=== PATIENT | female | born 1990 | race African-American/Black ===

== ENCOUNTER 2021-01-15 10:09 | Emergency (ER) | payer OTHER, SELFPAY ==
--- NOTE | ~2021-01-15 | XR_ITS ---
EXAMINATION: XR chest 2V 01/15/2021 11:48 INDICATION: Cough for 2 weeks PROCEDURE: 2 view chest COMPARISON: No prior studies for comparison. FINDINGS: The lungs are clear. The cardiomediastinal silhouette is within normal limits. There are no pleural effusions. There is no pneumothorax suspected. IMPRESSION: 1: NO ACUTE CARDIOPULMONARY DISEASE. Reviewed, dictated and finalized at location A. HEL KEEPER
--- NOTE | 2021-01-15 10:44 | ED.GENADULT ---
HPI - General Adult General Chief complaint: Upper Respiratory Infection Stated complaint: cough Time Seen by Provider: 01/15/21 10:42 History of Present Illness HPI narrative: Patient is a 30-year-old female who comes to the ED today complaining of a cough for the last 2 weeks. Says it is only present intermittently but when it is present it is severe. She otherwise denies any other symptoms including sore throat, fevers, sinus congestion. Has not tried any [id number] medicines. She tested negative for COVID-19. She has no other medical conditions. No possibility of . Related Data Allergies Allergy/AdvReac Type Severity Reaction Status Date / Time metoclopramide Allergy Unknown Dizziness Verified 01/15/21 12:07 ondansetron [From Zofran] Allergy Hallucinati Verified 01/15/21 12:07 ng Review of Systems Constitutional: Constitutional: Reports as per HPI, Denies fever(s), Denies night sweats and Denies weakness Cardiovascular: Cardiovascular: Denies chest pain, Denies edema, Denies leg edema, Denies dyspnea and Denies orthopnea Respiratory: Respiratory: Reports as per HPI, Reports cough and Denies dyspnea Gastrointestinal: Gastrointestinal: Denies abdominal pain, Denies constipation, Denies diarrhea, Denies nausea and Denies vomiting Musculoskeletal: Musculoskeletal: Denies abnormal gait, Denies back pain, Denies numbness and Denies tingling Neurologic: Denies Abnormal speech present, Denies abnormal gait, Denies numbness, Denies tingling and Denies weakness Psychiatric: Psychiatric: Denies homicidal ideation and Denies suicidal ideation [facility] Social History Social History Smoking status: Never smoker Alcohol intake: never Substance use: never Gender identity (if verbalized by the patient): Female Exam Narrative: Pleasant, well-appearing, no acute distress Const: General: cooperative, healthy appearing, comfortable, no acute distress, well developed, alert, awake and Physically active Orientation/consciousness: patient oriented x3 HENMT: Head: normal to inspection, normocephalic and atraumatic Ears: external ears normal General nose exam: Normal external nose present Eyes: Pupils: Equal, round and reactive pupils present EOM: EOMs intact bilaterally Neck: Neck: normal visual inspection Chest: Chest palpation & inspection: normal inspection of the chest and no tenderness Resp: Effort & Inspection: normal respiratory effort and able to speak in complete sentences Auscultation: clear to auscultation bilaterally Other: Lungs are clear to auscultation. Cardio: Rate: regular rate Rhythm: regular rhythm GI: Inspection: normal to inspection GI Palp: No abdominal tenderness : General: Yes no CVA tenderness Back/Spine/Pelvis: Back: no CVA tenderness Skin: General skin exam: normal color and no rashes or lesions noted Lesions: no lesions Neuro: General: patient oriented x3, no focal motor deficits and CN's II-XI intact bilaterally Cranial nerves: Yes Equal, round and reactive pupils present Speech: No Abnormal speech present Extrem: General: normal to inspection and full ROM Psych: Appearance: grossly normal and well kempt Mental Status: mental status grossly normal Speech and movement: Normal speech and movement present Affect: normal affect Thought process: Normal thought process present Course Vital Signs Vital signs: Vital Signs Temperature 36.6 C 01/15/21 12:00 Pulse Rate 62 01/15/21 12:00 Respiratory Rate 18 01/15/21 12:00 Blood Pressure 120/71 01/15/21 12:00 Pulse Oximetry 100 01/15/21 12:00 Temperature 36.6 C 01/15/21 12:00 Pulse Rate 62 01/15/21 12:00 Respiratory Rate 18 01/15/21 12:00 Blood Pressure 120/71 01/15/21 12:00 Pulse Oximetry 100 01/15/21 12:00 Medical Decision Making Vital Signs Vital Signs: Vital Signs Temperature 36.6 C 01/15/21 12:00 Pulse
[2021-01-15 12:00] VITALS: BP 120/71; PULSE 62; RESP 18; TEMP 36.6; O2SAT 100
[2021-01-15 12:32] VITALS: BP 114/74; PULSE 70; RESP 16; TEMP 36.9; O2SAT 100
== END 2021-01-15 12:34 | disposition home or self-care (01) ==
PROVIDERS: Emergency Provider Emergency Medicine
DX: J40 Bronchitis, not specified as acute or chronic (principal)
CPT/HCPCS: 71046; 99283

== ENCOUNTER 2021-08-15 17:15 | Emergency (ER) | payer OTHER, SELFPAY ==
--- NOTE | ~2021-08-15 | XR_ITS ---
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 COMPARISON: None available. FINDINGS: Normal mineralization. No fracture or dislocation. No lytic or blastic lesion. Joint space s are maintained. No erosion or periosteal change. Soft tissues within normal limits. IMPRESSION: No acute osseous finding in the right shoulder. Reviewed, dictated and finalized at location K.
[2021-08-15 17:17] VITALS: BP 140/81; PULSE 69; RESP 18; TEMP 36.6; O2SAT 100
--- NOTE | 2021-08-15 17:57 | ED.GENADULT ---
HPI - General Adult General Chief complaint: Extremity Injury, Upper Stated complaint: R SHOULDER PAIN S/P INJURY Time Seen by Provider: 08/15/21 17:21 Source: RN notes reviewed History of Present Illness HPI narrative: Patient presents emergency department from home for right shoulder pain. 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 now has pain in her right superior shoulder pain is worse with movement of the right arm she denies any direct trauma to the arm or falling of the arm she denies any pain of the right elbow or wrist denies chest pain or shortness of breath states she did take Aleve at home for the pain denies any numbness or tingling of the extremity Related Data Allergies Allergy/AdvReac Type Severity Reaction Status Date / Time metoclopramide Allergy Unknown Dizziness Verified 08/15/21 17:20 ondansetron [From Zofran] Allergy Hallucinati Verified 08/15/21 17:20 ng Review of Systems Review of Systems: Gen.: Denies fevers or chills Musculoskeletal: See HPI Neuro: Denies numbness, tingling, weakness Skin: Denies rash Endo: Denies DM [facility] Past Medical History Medical History (Updated 08/15/21 @ 18:00 by Frederic Abbott DO) Patient denies significant medical history Social History Social History Smoking status: Never smoker Alcohol intake: never Substance use: never Gender identity (if verbalized by the patient): Female Exam Narrative: APPEARANCE: No acute distress, nontoxic, resting in bed Eyes: EOMI HEENT: Normocephalic, atraumatic, RESPIRATORY: No respiratory distress MUSCULOSKELETAl: Tender palpation in the right superior shoulder no tenderness over the lateral or anterior shoulder no tenderness of the right elbow or wrist radial pulse 2+ neurovascular intact pain with flexion abduction greater than 90 degrees NEURO: Awake and alert. Following commands, speech normal, no focal deficits SKIN:: Warm, dry. Normal Color no rash or lesions Course Course Emergency Course: Discussed with patient results of workup and diagnosis. Discussed need for follow-up with primary care, proper use of medication, and reasons to return to the emergency department. Patient understands and agrees to current treatment plan Vital Signs Vital signs: Vital Signs Temperature 97.9 F 08/15/21 17:17 Pulse Rate 69 08/15/21 17:17 Respiratory Rate 18 08/15/21 17:17 Blood Pressure 140/81 08/15/21 17:17 Pulse Oximetry 100 08/15/21 17:17 Oxygen Delivery Room Air 08/15/21 17:17 Temperature 97.9 F 08/15/21 17:17 Pulse Rate 69 08/15/21 17:17 Respiratory Rate 18 08/15/21 17:17 Blood Pressure 140/81 08/15/21 17:17 Pulse Oximetry 100 08/15/21 17:17 Oxygen Delivery Room Air 08/15/21 17:17 Medical Decision Making Vital Signs Vital Signs: Vital Signs Temperature 97.9 F 08/15/21 17:17 Pulse Rate 69 08/15/21 17:17 Respiratory Rate 18 08/15/21 17:17 Blood Pressure 140/81 08/15/21 17:17 Pulse Oximetry 100 08/15/21 17:17 Oxygen Delivery Room Air 08/15/21 17:17 Temperature 97.9 F 08/15/21 17:17 Pulse Rate 69 08/15/21 17:17 Respiratory Rate 18 08/15/21 17:17 Blood Pressure 140/81 08/15/21 17:17 Pulse Oximetry 100 08/15/21 17:17 Oxygen Delivery Room Air 08/15/21 17:17 Imaging Data Radiologist's impression: ITS Impressions Shoulder X-Ray 08/15/21 18:22 IMPRESSION: No acute osseous finding in the right shoulder. Discharge Plan Discharge Clinical Impression: Sprain of right shoulder Patient Disposition: Home, Self-Care Condition: Stable Instructions: Antibiotic Form, Shoulder Sprain (ED) Additional Instructions: Return for increasing pain, numbness or tingling in the extremities or any other symptoms of concern Prescriptions: New ibuprofen [IBU] 600 mg tabl
== END 2021-08-15 18:42 | disposition home or self-care (01) ==
PROVIDERS: Emergency Provider Emergency Medicine
DX: S43.401A Unspecified sprain of right shoulder joint, initial encounter (principal); X50.0XXA Overexertion from strenuous movement or load, initial encounter; Y93.F2 Activity, caregiving, lifting
CPT/HCPCS: 73030; 99283; A4565

== ENCOUNTER 2021-09-09 14:05 | Outpatient (CLI) | payer OTHER, SELFPAY ==
--- NOTE | ~2021-09-09 | MR_ITS ---
EXAMINATION: MR shoulder RT wo con DATE: 09/09/2021 15:17 INDICATION: Right shoulder pain post injury TECHNIQUE: Magnetic resonance imaging (MRI) of the right shoulder was performed without intravenous c ontrast. Sequences included axial PD-weighted FS FSE, coronal oblique PD-weighted FS FSE, coronal obl ique T2-weighted FS FSE, sagittal PD-weighted FS FSE, and sagittal T1-weighted SE. COMPARISON: None. FINDINGS: Coracoacromial arch: The acromion undersurface is curved in morphology (type II). The coracoacromial ligament is normal. M inimal acromioclavicular osteoarthritis. Rotator cuff: The supraspinatus, infraspinatus and teres minor tendons are normal. The subscapularis tendon is norm al. Normal rotator cuff muscle bulk and signal. Biceps tendon, glenoid labrum and glenohumeral cartilage: Long head of the biceps tendon is normal. Glenoid labrum is normal. Glenohumeral cartilage is normal. Fluid: Physiologic amount of fluid in the glenohumeral joint and biceps tendon sheath. No loose osteochondr al bodies. No abnormal fluid in the subacromial/subdeltoid bursa to suggest bursitis. Bones: There is mild marrow edema at the lateral head of the clavicle with small linear low signal underlyin g the posterior margin of the articular cortex suggesting a nondisplaced incomplete impaction fractur e line. Otherwise normal marrow signal with no pathologic marrow replacing process. IMPRESSION: 1. Mild marrow edema along a very small subarticular trabecular fracture line at the lateral head of the clavicle. Otherwise normal right shoulder MRI. Reviewed, dictated and finalized at location A. IMPRESSION: 1. Mild marrow edema along a very small subarticular trabecular fracture line a t the lateral head of the clavicle. Otherwise normal right shoulder MRI.
== END 2021-09-09 14:06 | disposition home or self-care (01) ==
PROVIDERS: Visit Provider Nurse Practitioner Family
DX: M25.511 Pain in right shoulder (principal)
CPT/HCPCS: 73221

== ENCOUNTER 2022-06-04 16:04 | Emergency (ER) | payer OTHER, SELFPAY ==
[2022-06-04 16:06] VITALS: BP 119/67; PULSE 63; RESP 16; TEMP 36.6; O2SAT 100
--- NOTE | 2022-06-04 19:56 | ED.FEMALEGU ---
HPI - Female Genitourinary General Chief complaint: Urogenital-Female Stated complaint: IUD out of place Time Seen by Provider: 06/04/22 19:32 History of Present Illness HPI Narrative: 31-year-old very pleasant female here with concerns over not being able to feel her IUD strings today. Patient states that she had intercourse last evening and that it was very uncomfortable. States that today she was unable to feel her strings like she usually does which prompted her ED evaluation. She reports mild pelvic cramping since intercourse last evening but no vaginal bleeding. No dysuria, urgency or frequency or concern for STIs. Related Data Allergies Allergy/AdvReac Type Severity Reaction Status Date / Time metoclopramide Allergy Unknown Dizziness Verified 10/29/21 09:58 ondansetron [From Zofran] Allergy Hallucinati Verified 10/29/21 09:58 ng Review of Systems Review of Systems: Gen: Denies fevers or chills Eyes: Denies eye pain or visual change ENT: Denies congestion Respiratory: Denies shortness of breath or cough CV: Denies chest pain or palpitations GI: Denies abdominal pain nausea, emesis or diarrhea : Reports pelvic cramping denies burning, urgency, frequency or hematuria Musculoskeletal: Denies back pain or muscle pain Neuro: Denies numbness, tingling, weakness or focal weakness Skin: Denies rash Except as documented, all other systems reviewed and negative PMFSH Past Medical History Medical History Anxiety Claustrophobia Contusion of right clavicle Patient denies significant medical history Right shoulder pain Rotator cuff tear Family History Family History Other Asthma Diabetes mellitus Heart disease Hypertension Social History Social History Smoking status: Never smoker Alcohol intake: current Drinks per week: 2 Substance use: never Living arrangements: with family Occupation/Education: occupation Gender identity (if verbalized by the patient): Female Exam Narrative: APPEARANCE: Well appearing, no pain in distress, well-nourished. Head: Normocephalic and atraumatic. EYES: PERRLA/EOMI, conjunctivae clear NOSE: No nasal drainage EARS: External ear normal in appearance THROAT: Oropharynx is clear. Mucous membranes are moist. NECK: Supple. No adenopathy, no masses. RESPIRATORY: Airway patent, respirations nonlabored. Clear to auscultation bilaterally, no rales, rhonchi, wheezing. CARDIOVASCULAR: Regular rate and rhythm without murmurs, rubs, or gallops. : Cervical os is closed, no active bleeding, IUD strings not visualized ABDOMINAL: Normoactive bowel sounds. Soft, nontender, nondistended. No rebound tenderness or guarding. MUSCULOSKELETAL: Extremities are warm and well-perfused. Moves all extremities well. No edema. NEURO: Normal speech. No focal neurologic deficits. SKIN: Skin is warm and dry. No rashes. PSYCHIATRIC: Normal affect/mood. Course Vital Signs Vital signs: Vital Signs Temperature 97.9 F 06/04/22 16:06 Pulse Rate 63 06/04/22 16:06 Respiratory Rate 16 06/04/22 16:06 Blood Pressure 119/67 06/04/22 16:06 Pulse Oximetry 100 06/04/22 16:06 Oxygen Delivery Room Air 06/04/22 16:06 Temperature 97.9 F 06/04/22 16:06 Pulse Rate 66 06/04/22 21:03 Respiratory Rate 16 06/04/22 21:03 Blood Pressure 106/76 06/04/22 21:03 Pulse Oximetry 100 06/04/22 21:03 Oxygen Delivery Room Air 06/04/22 16:06 MDM - Female Genitourinary MDM Narrative Medical decision making narrative: 31-year-old female here for over concerns about not being able to feel her IUD strings after intercourse last evening. She has no abdominal tenderness on exam, on pelvic exam the IUD strings are not visualized. Her urine appears infected. is negative. Unfortunately no ultrasound availa
[2022-06-04 20:06] LABS: Appearance Urine Cloudy (Clear); Bacteria Urine 4+ /hpf; Bilirubin Urine Negative (Negative); Blood Urine Negative (Negative); Color Urine Yellow (Yellow); Glucose Urine UA Negative (Negative); Ketones Urine Negative (Negative); Leukocyte Esterase Ur 1+ LEU/UL (Negative); Nitrate Urine Positive (Negative); Non Pathogenic Casts 0-2; Protein Urine Trace mg/dL (Negative); RBC Urine 0-2 /hpf (0-2); Specific Grav Ur 1.024 (1.001-1.035); Squamous Epithelial Cell Urine None seen /hpf (Few); WBC Urine 21-50 /hpf
[2022-06-04 20:09] LABS: Add Urine Microscopic? YES
[2022-06-04 20:19] VITALS: BP 106/64; PULSE 64; RESP 16; O2SAT 98
[2022-06-04 20:19] LABS: Pregnancy On Board Control Positive; Urine Pregnancy Test Negative
[2022-06-04] MEDS: KETOROLAC 30 MG/ML VIAL (*BKC) IM (20:59)
[2022-06-04 21:03] VITALS: BP 106/76; PULSE 66; RESP 16; O2SAT 100
== END 2022-06-04 21:05 | disposition home or self-care (01) ==
PROVIDERS: Emergency Provider Physician Assistant
DX: N39.0 Urinary tract infection, site not specified (principal)
CPT/HCPCS: 81001; 81025; 87077; 87086; 87186; 96372; 99283; J1885

== ENCOUNTER 2023-10-25 18:59 | Emergency (ER) | payer OTHER, SELFPAY ==
--- NOTE | 2023-10-25 19:13 | PC.NURSE ---
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 AMBULATORY FROM THE ED WITH A STEADY GAIT.
== END 2023-10-25 19:13 | disposition left against medical advice (07) ==
LOC: ANHED 19:45
DX: Z53.21 Procedure and treatment not carried out due to patient leaving prior to being seen by health care provider (principal)
CPT/HCPCS: 99199

== ENCOUNTER 2025-02-16 20:56 | Emergency (ER) | payer OTHER, SELFPAY ==
[2025-02-16 20:59] VITALS: BP 115/55; PULSE 79; RESP 18; TEMP 36.4; O2SAT 100
--- NOTE | 2025-02-16 22:20 | ED_ITS ---
HPI - Dental/Oral General Chief complaint: Dental/Oral Stated complaint: dental pain Time Seen by Provider: 02/16/25 22:05 History of Present Illness HPI Narrative: 34-year-old female with no pertinent past medical history presenting with right upper jaw pain and thinks it could be related to her tooth. patient has had intermittent tooth pain in her right upper premolar area for the last 9 months after she ate a piece of popcorn and potentially injured her tooth. Has not been able to see a dentist secondary to monetary and insurance issues. Tried some Tylenol and ibuprofen with some mild relief of symptoms but still having pain in her right tooth upper jaw. Was otherwise in her normal state of health. No systemic features such as difficulty swallowing, fever, chills, nausea, vomiting, headache, vision changes. Related Data Allergies Allergy/AdvReac Type Severity Reaction Status Date / Time metoclopramide Allergy Unknown Dizziness Verified 02/16/25 21:02 ondansetron (From Zofran) Allergy Hallucinati Verified 02/16/25 21:02 ng Review of Systems Review of Systems: As reviewed above in HPI All systems reviewed & are unremarkable except as noted in HPI and below PMFSH Past Medical History Medical History Subacromial bursitis of right shoulder joint Contusion of right clavicle Anxiety Claustrophobia Rotator cuff tear Right shoulder pain Patient denies significant medical history Family History Family History Other Asthma Diabetes mellitus Heart disease Hypertension Social History Social History Smoking status: Never smoker Alcohol intake: current Drinks per week: 2 Substance use: never Living arrangements: with family Occupation/Education: occupation Gender identity (if verbalized by the patient): Female Exam Narrative: GENERAL: [Well-appearing, well-nourished, and in no acute distress.] HEAD: [Normocephalic, atraumatic.] EYES: [PERRLA and EOMI.] ENT: right upper premolar near tooth 1 has a area of potential dental caries and some jagged adding raising suspicion for an old dental fracture given patient's clinical history. No purulent drainage. No periapical abscess formation. No fluctuance or tenderness to gum palpation but there is tenderness to percussion of the tooth itself. NECK: Supple. CHEST: [Clear to auscultation. No respiratory distress.] HEART: [Regular rate and rhythm]. No murmur heard. [Normal peripheral pulses.] ABDOMEN: [Soft, nondistended], [nontender], [No rigidity or guarding] EXTREMITIES: Normal range of motion. [No edema.] SKIN: Warm, dry, no rash. NEURO: [No focal deficits]. Alert and oriented [x3.] PSYCH: [Normal mood and affect.] Course Vital Signs Vital signs: Vital Signs Temperature 36.4 C 02/16/25 20:59 Pulse Rate 79 02/16/25 20:59 Respiratory Rate 18 02/16/25 20:59 Blood Pressure 115/55 L 02/16/25 20:59 Pulse Oximetry 100 02/16/25 20:59 Oxygen Delivery Room Air 02/16/25 20:59 Temperature 36.4 C 02/16/25 20:59 Pulse Rate 79 02/16/25 20:59 Respiratory Rate 18 02/16/25 20:59 Blood Pressure 115/55 L 02/16/25 20:59 Pulse Oximetry 100 02/16/25 20:59 Oxygen Delivery Room Air 02/16/25 20:59 MDM MDM Narrative Medical decision making narrative: 34-year-old female with no pertinent past medical history presenting with right upper jaw pain and thinks it could be related to her tooth. patient has had intermittent tooth pain in her right upper premolar area for the last 9 months after she ate a piece of popcorn and potentially injured her tooth. Has not been able to see a dentist secondary to monetary and insurance issues. Tried some Tylenol and ibuprofen with some mild relief of symptoms but still having pain in her right tooth upper jaw. Was otherwise in her normal state of health. No systemic features such as difficulty swallowing, fever, chills, nausea, vomiting, headache, vision changes. right upper premolar near tooth 1 has a area of potential dental caries and some jagged adding raising suspicion for an old dental fracture given patient's clinical history. No purulent drainage. No periapical abscess formation. No fluctuance or tenderness to gum palpation but there is tenderness to percussion of the tooth itself. Will treat for dentalgia and potential dental caries. She was given Toradol and Augmentin and prescription for oxycodone breakthrough pain and Toradol sent to patient's pharmacy. Augmentin prescribed and she was safe for discharge. Differential Diagnosis Differential Diagnosis: Dental caries, dental fracture, dentalgia, less likely periapical abscess or tooth abscess Lab Data MDM Lab Attestation statement: I personally reviewed the patient's lab results. Discharge Plan Discharge Clinical Impression: Pain, dental Patient Disposition: Home Condition: Stable Instructions: Antibiotic Form, Toothache (ED) Additional Instructions: Pain in the right upper premolar area could be from a small dental fracture in the past given the injury about 9 months ago with some dental caries that could be infected today. We will treat this with antibiotics and pain control medica tions. Follow-up with the dentist at your earliest convenience. Return with any emergent concerns at any time. Patient Language: Lithuanian Prescriptions: New oxycodone 5 mg tablet 5 mg PO Q8H PRN (Reason: pain) Qty: 14 0RF ketorolac 10 mg tablet 10 mg PO Q8H PRN (Reason: pain) 5 Days Qty: 20 0RF Rx Instructions: maximum total duration of 5 days from all oral, intranasal, or parenteral formulations amoxicillin-pot clavulanate 875-125 mg tablet 1 tablet PO Q12H 7 Days Qty: 14 0RF No Action Lidocaine Viscous 2 % solution 1 applic MUCOUS MEM TID PRN (Reason: pain) Qty: 100 0RF ibuprofen 600 mg tablet 600 mg PO Q6H PRN (Reason: pain) Qty: 30 0RF nitrofurantoin monohyd/m-cryst [Macrobid] 100 mg capsule 100 mg PO Q12H 5 Days Qty: 10 0RF Rx Instructions: must administer with a meal/food Follow-up/Referrals: PHYSICIAN,BOOK SEWING MACHINE OPERATOR [Primary Care Provider, Internal Medicine] Stand Alone Forms: Work/School Release IP Time of Disposition: 22:20
[2025-02-16] MEDS: KETOROLAC 30 MG/ML VIAL (*BKC) IM (22:22)
== END 2025-02-16 22:30 | disposition home or self-care (01) ==
PROVIDERS: Emergency Provider Student in an Organized Health Care Education/Training Program
DX: K08.89 Other specified disorders of teeth and supporting structures (principal)
CPT/HCPCS: 96372; 99283; A9270; J1885